=== PATIENT | female | born 1955 ===

== ENCOUNTER 2017-05-04 07:31 | Day surgery (SDC) | payer MEDICAID ==
[2017-05-01 09:45] VITALS: BMI 29.7
[2017-05-04] MEDS ORDERED: Propofol 10 mg/ml Inj (20 ML) ONE (08:33)
[2017-05-04] MEDS ORDERED: Lidocaine 2% Inj (20ml) ONE (08:36)
[2017-05-04] MEDS ORDERED: Sodium Chloride 0.9% 1,000 ML IV SCH (09:00)
[2017-05-04 09:56] VITALS: BP 137/88; PULSE 67; RESP 16; TEMP 98.7; O2SAT 99
== END 2017-05-04 10:18 | disposition home or self-care (01) ==
LOC: ENDO 07:31
PROVIDERS: ATTEND Internal Medicine Gastroenterology
DX: Z12.11 Encounter for screening for malignant neoplasm of colon (principal); K63.5 Polyp of colon; K64.1 Second degree hemorrhoids
CPT/HCPCS: 45380; 88305; J2704; J7040